=== PATIENT | female | born 1950 | race Caucasian/White ===

== ENCOUNTER 2016-08-25 07:59 | Day surgery (SDC) | payer OTHER ==
[2016-08-25] VITALS (7 sets, daily range): BP systolic 98–143; BP diastolic 52–72; PULSE 53–55; RESP 16–20; TEMP 97.5–98.4; O2SAT 9–99
[~2016-08-25] VITALS: Ht 157.5 cm; Wt 53.2 kg
[~2016-08-25 07:59] MED LIST: CITA20TA4 PO; MONT10TA2 PO; NORV5TAB PO; OMEP20TA39 PO
[2016-08-25] MEDS ORDERED: CALC600T25 PO (08:25)
[2016-08-25] MEDS ORDERED: ATOR1TAB18 PO (08:25)
[2016-08-25] MEDS ORDERED: CLOP75TA PO (08:25)
[2016-08-25] MEDS ORDERED: MULT-135 PO (08:25)
[2016-08-25] MEDS ORDERED: ZANT150T2 PO (08:25)
[2016-08-25] MEDS ORDERED: METO25TA3 PO (08:25)
[2016-08-25] MEDS ORDERED: ASPI1TAB69 PO (08:25)
[2016-08-25] MEDS ORDERED: OMEP20TA PO (08:25)
[2016-08-25] MEDS ORDERED: CITA20TA4 PO (08:25)
[2016-08-25] MEDS ORDERED: LOSA25TA PO (08:25)
[2016-08-25] MEDS ORDERED: SODIUM CHLOR 0.9% 1000 ML IV SCH (08:45)
[2016-08-25] MEDS ORDERED: SODIUM CHLORIDE 5 ML FLUSH PRN IVF (08:45)
[2016-08-25] MEDS ORDERED: LIDOCAINE 1%/EPINEPHrine 1:100,000 SOLN 20 ML VIAL ONE (08:52)
[2016-08-25] MEDS ORDERED: MIDAZOLAM HCL 5 MG/5 ML VIAL ONE (08:53)
[2016-08-25] MEDS ORDERED: fentaNYL CITRATE 250 MCG/5 ML AMP ONE (08:53)
[2016-08-25 08:56] LABS: AUTOMATED NEUTROPHIL # 2.5 TH/MM3 (1.8-7.7); EOSINOPHIL # 0.2 TH/MM3 (0-0.4); EOSINOPHIL % 3.9 % (0.0-4.0); HEMATOCRIT 30.5 % (35.0-46.0); HEMO FLAGS DIFF FINAL; LYMPH % 18.8 % (9.0-44.0); LYMPHOCYTE # 0.8 TH/MM3 (1.0-4.8); MONO % 15.8 % (0.0-8.0); NEUT % 60.5 % (16.0-70.0); PLATELET COUNT 158 TH/MM3 (150-450); RED BLOOD COUNT 3.86 MIL/MM3 (4.00-5.30); RED CELL DISTRIBUTION WIDTH 16.1 % (11.6-17.2); WHITE BLOOD COUNT 4.1 TH/MM3 (4.0-11.0)
[2016-08-25] MEDS ORDERED: SODIUM CHLORIDE 5 ML FLUSH BID IVF SCH (09:00)
--- NOTE | 2016-08-25 10:38 | RADRPT ---
EXAM DATE/TIME: 08/25/2016 09:13 [place] COMPARISON: No previous studies available for comparison. INDICATIONS : Anemia. SEDATION TIME: 25 minutes BIOPSY SITE: Right iliac wing MEDICATION(S): 1.) 25 mg midazolam (Versed) IV 2.) 125 mcg fentanyl (Sublimaze) INJECTION MOLDING TECHNICIAN(s): Joyce Sanchez RN DEVICE(S): 1.) 11 gauge Bone marrow biopsy needle MEDICAL HISTORY : Hypertension. SURGICAL HISTORY : None. ENCOUNTER: Initial ACUITY: 1 day PAIN SCORE: 0/10 LOCATION: Bilateral pelvis A total of one core specimen(s) were obtained and sent to the laboratory for pathologic evaluation. PROCEDURE: 1. CT guided bone marrow biopsy. 2. Conscious sedation with continuous EKG and oximetry monitoring. 3. EKG and oximetry remained stable throughout the procedure. Prior to the procedure informed consent was obtained. Any appropriate prior imaging studies were rev iewed. The site was prepped in a sterile fashion. Full sterile technique was used, including cap, mask, wood rile gloves and gown and a large sterile sheet. Hand hygiene and 2% chlorhexidine and/or betadine/al cohol prep was utilized per protocol for cutaneous antisepsis. The skin and subcutaneous tissues wer e infiltrated with local anesthetic solution. With CT guidance the previously identified target was localized. Biopsy was performed using the presc ribed needle as above. Following biopsy marrow aspiration was performed with repeat puncture. Adequa te hemostasis was obtained with compression at the puncture site. Follow-up CT scan reveals no hemorrhage. Conscious sedation was performed with the prescribed dosages and duration as above. The patient luz ated the procedure well and there were no complications. EKG and oximetry remained stable throughout the procedure. The patient was sent to Radiology Outpatient Unit in stable condition. CONCLUSION: 1. Uncomplicated CT guided bone marrow aspirate. 2. Uncomplicated CT guided bone marrow biopsy. Hardeep Gomez MD FACR on August 25, 2016 at 10:36 Board Certified Radiologist. This report was verified electronically.
[2016-08-25 11:35] LABS: BONE MARROW PROCESSING COMPLETE; IRON STAIN DONE; JENNER GIEMSA STAIN DONE
== END 2016-08-25 12:15 | disposition home or self-care (01) ==
LOC: HRAD 07:59 → HRIP 08:18 → HRAD 12:15
PROVIDERS: ATTEND Internal Medicine Hematology & Oncology
DX: D64.9 Anemia, unspecified (principal); D75.81 Myelofibrosis; D73.1 Hypersplenism; I10 Essential (primary) hypertension
CPT/HCPCS: 38221; 77012; 85025; 85097; 88305; 88311; 88313; 88341; 88342; 99152; 99153; C1830; G0364; J2250; J3010